=== PATIENT | female | born 1970 | race Caucasian/White ===

== ENCOUNTER → 2017-10-19 13:01 | Outpatient (CLI) | payer BC, SELFPAY ==
[2017-10-19 15:42] LABS: Absolute Lymphocyte Count 1.96 X10^3/ul (0.83-4.51); Absolute Neutrophil Count 3.8 X10^3/uL (2.0-7.7); Basophil# 0.05 X10^3/uL; Basophil% 0.8 % (0-1); Eosinophil# 0.18 X10^3/uL; Eosinophils% 2.7 % (0-5); Hematocrit 40.7 % (37-47); Lymphocyte # 1.96 X10^3/ul (4.0); Lymphocyte % 29.6 % (19-41); Mean Corp Hgb Conc 34.4 g/gl (32-36); Mean Corpuscular Hgb 29.3 pg (27.0-32.0); Mean Corpuscular Volume 85.1 fL (81-99); Mean Platelet Vol. 10.7 fl (6.2-12.0); Monocyte# 0.59 X10^3/uL; Monocyte% 8.9 % (0-10); Neutrophil # 3.82 X10^3/uL (2.7-7.7); Neutrophil % 57.7 % (47-70); Platelet Count 231 K/mm3 (150-450); RBC Distribution Width CV 12.6 % (11.6-14.6); RBC Distribution Width SD 38.9 fl (35.1-43.9); Red Blood Count 4.78 M/mm3 (4.2-5.4); White Blood Count 6.6 K/mm3 (4.4-11.0)
[2017-10-19 15:56] LABS: Anion Gap 7 (5-15); BUN 16 mg/dL (7-18); BUN/Creat Ratio 18.2 RATIO (10-20); Calcium,Total 8.6 mg/dL (8.5-10.1); Chloride 105 mmol/L (98-107); Creatinine, Serum 0.88 mg/dL (0.55-1.02); EST Glomerular Filtration Rate 72 mL/min (>60); Est Glom Filt Rate - Afr Amer 88 mL/min (>60); Glucose 97 mg/dL (74-106); Potassium 4.1 mmol/L (3.5-5.1); Sodium Level 141 mmol/L (136-145); Thyroid Stim Hormone (TSH) 1.06 uIU/mL (0.358-3.74)
[2017-10-19 16:05] LABS: POSITIVE COUNT NO; POSITIVE DIFFERENTIAL NO; POSITIVE MORPHOLOGY NO
[2017-10-26 12:06] LABS: Cotinine Screen Blood None Detected (.); Nicotine Blood None Detected (.)
== END ==
PROVIDERS: Visit Provider Family Medicine
DX: Z00.00 Encounter for general adult medical examination without abnormal findings (principal); R63.5 Abnormal weight gain
CPT/HCPCS: 36415; 80048; 80307; 84443; 85025; G0478

== ENCOUNTER → 2018-05-24 12:27 | Outpatient (CLI) | payer BC, SELFPAY ==
--- NOTE | 2018-05-24 12:31 | BI_ITS ---
MAMMOGRAPHY - BILATERAL SCREENING REASON FOR EXAM: Female, 48 years old. Routine annual screening examination. PERTINENT HISTORY: Non-contributory. TECHNIQUE: Digital bilateral breast ari (3D mammographic acquisition) in the CC and MLO projections. 2-D mediolateral oblique (MLO) and craniocaudad (CC) views of both breasts were obtained. CAD: Full Field Digital Mammography with Computer Added Detection was performed. COMPARISON: Comparison is made with prior examination dated October 21, 2016 and November 02, 2013. FINDINGS: Breast Composition: There are scattered areas of fibroglandular density. There are no dominant masses or suspicious calcifications. No other significant abnormalities are identified. There has been no significant change since the prior study. BI/SCREENING MAMM (CAD), BILAT IMPRESSION: Stable bilateral screening mammogram. Yearly follow-up mammogram recommended. (A) ASSESSMENT CATEGORY: BIRADS Category 1: Negative. A letter regarding these results will be sent to the patient by the facility within 30 days. Approximately 10% of breast cancers are not detected by mammography. A normal mammogram should not delay biopsy of a clinically suspicious abnormality. [id number] Electronically Signed: Leo Johnson MD at 13:14 EST , Service support ,
--- OUTSIDE RECORDS SUMMARY | 2018-07-26 16:16 | XMS RPT_ITS ---
:1970 Author Organization [facility] Care Team Providers Name Role Phone Marycarmen Mckee Attending Unavailable Marycarmen Mckee Referring Unavailable Marycarmen Mckee Attending Unavailable PROBLEMS PROBLEMS DATE TYPE CONDITION / CODE ATTENDING STATUS SOURCE 10/19/2017 Unknown R63.5 - Abnormal Marycarmen Mckee Active [facility] weight gain / Community R63.5(ICD-10) Hospital Repository 10/19/2017 Unknown Z00.00 - Marycarmen Mckee Active [facility] Encounter for [facility] medical Repository examination without abnormal findings / Z00.00(ICD-10) PROCEDURES PROCEDURES No Procedure Records FoundRESULTS RESULTS SCREENING MAMM (CAD), Observed: 05/24/2018 Status: F Source: ANA BILAT 12:31 PM [facility] REPOSITORY [facility] Imaging Services [address] [place] [address] SCREENING MAMM (CAD), BILAT MR#: [id number] Acct: [id number] Name: BEKAH VALENTINO Rep #: [id number] : 1970 F 48 From: Leo Johnson MD PCP: Status: REG CLI Study: SCREENING MAMM (CAD), BILAT Date of Exam: 05/24/18 Exam# [id number] Ordering Dr: Marycarmen Mckee MD MAMMOGRAPHY - BILATERAL SCREENING REASON FOR EXAM: Female, 48 years old. Routine annual screening examination. PERTINENT HISTORY: Non-contributory. TECHNIQUE: Digital bilateral breast ari (3D mammographic acquisition) in the CC and MLO projections. 2-D mediolateral oblique (MLO) and craniocaudad (CC) views of both breasts were obtained. CAD: Full Field Digital Mammography with Computer Added Detection was performed. COMPARISON: Comparison is made with prior examination dated October 21, 2016 and November 02, 2013. FINDINGS: Breast Composition: There are scattered areas of fibroglandular density. There are no dominant masses or suspicious calcifications. No other significant abnormalities are identified. There has been no significant change since the prior study. BI/SCREENING MAMM (CAD), BILAT IMPRESSION: Stable bilateral screening mammogram. Yearly follow-up mammogram recommended. (A) ASSESSMENT CATEGORY: BIRADS Category 1: Negative. A letter regarding these results will be sent to the patient by the facility within 30 days. Approximately 10% of breast cancers are not detected by mammography. A normal mammogram should not delay biopsy of a clinically suspicious abnormality. [id number] Electronically Signed: Leo Johnson MD at 13:14 EST , Service support , CC: Marycarmen Mckee MD Contract Agent: Signed BASIC METABOLIC Collected: 10/19/2017 Status: F Source: ANA PROFILE (BMP) 1:05 PM [facility] REPOSITORY TYPE CODE TESTS RESULT OUT OF RANGE REFERENCE UNITS LAB L501.0100 74-106 mg/dL Normal GLU 97 Result Comment: Please note revised GLUCOSE reference range effective 2017. LAB L501.1000 7-18 mg/dL Normal BUN 16 LAB L501.1100 0.55-1.02 mg/dL Normal CREAT,SERUM 0.88 Result Comment: The validity of the calculated GFR AND GFRAA in patients over 70 years has not been determined. Clinical correlation is essential. LAB L501.1110 >60 mL/min Normal EST GFR 72 Result Comment: Non- GFR Calc LAB L501.1115 >60 mL/min Normal EST GFR - AA 88 Result Comment: GFR Calc LAB L501.1300 10-20 RATIO Normal BUN/CRE 18.2 LAB L501.2200 8.5-10.1 mg/dL CA Normal 8.6 LAB L501.5300 136-145 mmol/L NA Normal 141 LAB L501.5600 3.5-5.1 mmol/L K Normal 4.1 LAB L501.5900 98-107 mmol/L CL Normal 105 LAB L501.6100 21.0-32.0 mmol/L Normal CO2 29.0 LAB L501.6200 5-15 Normal GAP 7 Performed By: #### L500.2500, L501.9520 #### [facility] [address] [place], [place], [address] THYROID STIM HORMONE Collected: 10/19/2017 Status: F Source: [place] (TSH) 1:05 PM [facility] REPOSITORY TYPE CODE TESTS RESULT OUT OF RANGE REFERENCE UNITS LAB L501.9520 0.358-3.74 uIU/mL Normal TSH 1.06 Performed By: #### L500.2500, L501.9520 #### [facility] [address] [place], [address] CBC W/DIFF, AUTOMATED Collected: 10/19/2017 Status: F Source: ANA 1:05 PM [facility] REPOSITORY TYPE CODE TESTS RESULT OUT OF RANGE REFERENCE UNITS LAB L100.1000 4.4-11.0 K/mm3 Normal WBC 6.6 LAB L100.1200 4.2-5.4 M/mm3 Normal RBC 4.78 LAB L100.1300 12.0-15.0 g/dl Normal HGB 14.0 LAB L100.1400 37-47 % Normal HCT 40.7 LAB L100.1500 81-99 fL Normal MCV 85.1 LAB L100.1600 27.0-32.0 pg Normal MCH 29.3 LAB L100.1700 32-36 g/gl Normal MCHC 34.4 LAB L100.1810 11.6-14.6 % Normal RDW CV 12.6 LAB L100.1820 35.1-43.9 fl Normal RDW SD 38.9 LAB L100.1900 150-450 K/mm3 Normal PLT 231 LAB L100.2000 6.2-12.0 fl Normal MPV 10.7 LAB L100.2100 47-70 % Normal NEUT% 57.7 LAB L100.2200 19-41 % Normal LY% 29.6 LAB L100.2300 0-10 % Normal MONO% 8.9 LAB L100.2400 0-5 % Normal EO% 2.7 LAB L100.2500 0-1 % Normal BASO% 0.8 LAB L100.2550 0.0-0.9 % Normal IM GRAN % 0.300 Result Comment: IG% - Immature Granulocytes (promyelocytes, myelocytes and metamyelocytes) > 1% indicates that a LEFT SHIFT is Present. LAB L100.2620 2.0-7.7 X10 3/uL Normal Absolute Neut 3.8 LAB L100.2720 0.83-4.51 X10 3/ul Normal Absolute Lymph 1.96 Performed By: #### L100.0100 #### [facility] [address] [place], [address] NICOTINE SCREEN BLOOD Collected: 10/19/2017 Status: F Source: [place] 1:05 PM [facility] REPOSITORY TYPE CODE TESTS RESULT OUT OF RANGE REFERENCE UNITS LAB L3600.3410 . ng/mL Normal NICOTINE BLD None Detected Result Comment: Nicotine levels greater than 2.0 are consistent with the use of tobacco or tobacco cessation products. LAB L3600.3425 . ng/mL Normal COTININE BLD None Detected Result Comment: Cotinine levels greater than 20.0 are consistent with the use of tobacco or tobacco cessation products. Performed at: [facility] [id number] Enrollment Management Director: Jasson Lopez MD, Phone: [phone] Performed By: #### L3600.3400 #### [facility] (refer to report for specific site) refer to report for address and phone number ALLERGIES ALLERGIES No Allergies Records FoundENCOUNTERS ENCOUNTERS ADMIT/DISCHARGE ACCOUNT ADMITTING ENCOUNTER LOCATION SOURCE NUMBER CLASS 05/24/2018 [id number] Ambulatory [facility] [address] [facility] ing:OPBI Repository 10/19/2017 [id number] [facility] ing:BF[facility]AB Repository PAYERS PAYERS ENCOUNTER GUARANTOR PAYER SUBSCRIBER SOURCE 05/24/2018 BEKAH Campos Primary BEKAH Young [id number] Insurance:[facility] [address]: [place]: [id number] [id number] Repository [address]Vsr: ([phone]) Date:[id number] [phone] () [id number], [place] [address]ZV: 05/24/2018 Secondary NOT GIVENUNK [facility] Insurance:SELF PAY [facility] Number: Effective Repository Date:2018-04-21 10/19/2017 Bekah Campos Primary Bekah Young [id number] [address] Number: B: [id number], [place] [id number] Repository [address]Fjp: (330) Date:[id number] [phone] () [id number], [place] [address]XC: 10/19/2017 Secondary NOT GIVENUNK [facility] Insurance:SELF PAY [facility] Number: Effective Repository Date:2017-10-19
== END ==
PROVIDERS: Referring Provider Family Medicine; Visit Provider Family Medicine
DX: Z12.31 Encounter for screening mammogram for malignant neoplasm of breast (principal)
CPT/HCPCS: 77063; 77067

== ENCOUNTER → 2018-10-20 | Outpatient (CLI) | payer BC, SELFPAY ==
[2018-10-20 12:14] LABS: Absolute Lymphocyte Count 1.56 X10^3/ul (0.83-4.51); Absolute Neutrophil Count 4.2 X10^3/uL (2.0-7.7); Basophil# 0.04 X10^3/uL; Basophil% 0.6 % (0-1); Eosinophil# 0.14 X10^3/uL; Eosinophils% 2.1 % (0-5); Hemoglobin 14.1 g/dl (12.0-15.0); Lymphocyte # 1.56 X10^3/ul (4.0); Lymphocyte % 23.9 % (19-41); Mean Corp Hgb Conc 32.8 g/gl (32-36); Mean Corpuscular Hgb 28.3 pg (27.0-32.0); Mean Corpuscular Volume 86.2 fL (81-99); Mean Platelet Vol. 10.7 fl (6.2-12.0); Monocyte# 0.56 X10^3/uL; Monocyte% 8.6 % (0-10); Neutrophil # 4.22 X10^3/uL (2.7-7.7); Neutrophil % 64.6 % (47-70); Platelet Count 239 K/mm3 (150-450); RBC Distribution Width CV 13.7 % (11.6-14.6); RBC Distribution Width SD 42.9 fl (35.1-43.9); Red Blood Count 4.99 M/mm3 (4.2-5.4); White Blood Count 6.5 K/mm3 (4.4-11.0)
[2018-10-20 12:22] LABS: Anion Gap 9 (5-15); BUN 15 mg/dL (7-18); BUN/Creat Ratio 16.9 RATIO (10-20); Calcium,Total 8.9 mg/dL (8.5-10.1); Chloride 107 mmol/L (98-107); Creatinine, Serum 0.88 mg/dL (0.55-1.02); EST Glomerular Filtration Rate 72 mL/min (>60); Est Glom Filt Rate - Afr Amer 87 mL/min (>60); Glucose 101 mg/dL (74-106); Potassium 4.1 mmol/L (3.5-5.1); Sodium Level 141 mmol/L (136-145)
[2018-10-20 12:31] LABS: POSITIVE COUNT NO; POSITIVE DIFFERENTIAL NO; POSITIVE MORPHOLOGY NO
[2018-10-24 11:27] LABS: Nicotine Blood None Detected (.)
[2018-10-24 11:28] LABS: Cotinine Screen Blood None Detected (.)
[2018-10-26 09:04] LABS: HPV HC, High Risk Negative (Negative)
== END | disposition home or self-care (01) ==
LOC: BFHLAB 08:24
PROVIDERS: Family Provider Family Medicine; PCP Family Medicine; Visit Provider Family Medicine
DX: Z00.00 Encounter for general adult medical examination without abnormal findings (principal); I10 Essential (primary) hypertension; Z12.4 Encounter for screening for malignant neoplasm of cervix
CPT/HCPCS: 36415; 80048; 80323; 85025; 87624; 88175; G0145

== ENCOUNTER 2018-11-09 07:43 | Day surgery (SDC) | payer BC, SELFPAY ==
[2018-11-09 08:20] VITALS: BP 139/85; PULSE 60; RESP 16; TEMP 37.4; O2SAT 100; BMI 27.6
--- NOTE | 2018-11-09 08:34 | H&P.OPEN ---
History of Present Illness Date of Admission: 11/09/18 The patient is a 48 year old F presents for screening colonoscopy. Patient is never had a colonoscopy. Patient's paternal grandmother was diagnosed with colon cancer in her 70s. Patient's dad was also diagnosed with esophageal cancer. Patient states she has bowel movements daily denies any blood or abdominal pain or nausea or vomiting. Patient's reflux is controlled with Nexium. Patient has had previous EGD about 3 years ago. Past Medical/Surgical History - Planned Operation Planned Operative Procedure/s: COLONOSCOPY Date of Operative Procedure: 11/09/18 Permit Signed: Yes S.O.S: No Is This Patient Having a Total Joint: No - Previous Hospitalizations/Surgeries HX Hospitalizations: No HX of Surgeries: ABLATION. TUBAL Any Problems With Anesthesia: No You/Your Family Experience Fever (Hyperthermia) With Anes: No Cholinesterase deficiency: No - Cardiovascular Hx Chest Pain within Last 2 months: No Hx of Irregular Heartbeat and/or Afib: Yes - HEART MURMUR Hx Heart Attack: No Hx Congestive Heart Failure: No Hx Rheumatic Fever: No Hx Hypertension: Yes - ON MED, CONTROLLED Hx Internal Defibrillator: No Hx Pacemaker: No Hx Cardiac Catheterization: No Hx Cardiac Surgery/Stents/Etc.: No Hx Stress Test: Yes - [facility], ~9-10 YRS AGO HX Edema: No Hx Pain in Legs when Walking/Leg Cramps: No - Respiratory Chronic Cough: No HX of Shortness of Breath: No Hoarseness: No Hx Chronic Obstructive Pulmonary Disease (COPD): No Hx Asthma: No Hx Emphysema: No Hx Sleep Apnea: No Hx Oxygen Use at Home: No Hx Respiratory Tract Infection/Cold (presently): No Do You Snore Loudly (louder than talking or can be heard): Yes Do You Often Feel Tired/ Fatigued/ Sleepy Dring Daytime?: No Has Anyone Observed You Stop Breathing During Sleep?: Yes Result (for STOP score): Positive Hx Smoking: No Smoking Status: Never smoker - Gastrointestinal Hx Gastroesophageal Reflux: Yes Controlled With Meds: Yes Hx Gastrointestinal Disorders: No Hx Gastrointestinal Bleed: No Hx Ulcer: No Hx Hiatal Hernia: No Difficulty Chewing/Swallowing: No Recent Onset of Swallowing Problems: No Special diet followed at home: No Hx Unplanned Weight Loss of 20#: No HX Unplanned Weight Gain of 20#: No - Neurological Hx Seizures: No HX Syncope/Blackout Spells/Unconsciousness: No Hx CVA/Stroke: No Hx Transient Ischemic Attacks (TIA): No Hx Multiple Sclerosis: No Hx Parkinson's Disease: No Hx Head/Neck Injury: No Hx Headaches: Yes Hx Back Injury/Pain: Yes Recent Onset of Speech Difficulty: No Restless Legs: No Does patient have nerve stimulator: No - Blood Disorder Hx Leukemia: No Bleeding Tendencies: No Hx Deep Vein Thrombosis: No Hx High Cholesterol: No Blood Transmitted Disease: No Hx Hepatitis: No Hx Cirrhosis: No Hx Anemia: Yes - HX OF Hx Blood Disorders: No - Reproduction : No Is Patient Lactating: No Hx Hysterectomy: No Hx Tubal Ligation: Yes Are You Post Menopause: No - Genitourinary Hx Renal Disease: No - Musculoskeletal Hx Arthritis: No Hx Rheumatoid Arthritis: No Hx Gout: No Recent Onset of an Orthopedic Problem: No - Endocrine Hx Diabetes: No Thyroid Disease: No Hx Steroid Therapy: No - Psycho/Social Hx Substance Use: No Hx Alcohol Use: No Hx Anxiety: No Hx Depression: No Mental Illness: No Hx Dementia: No - Miscellaneous Hx Cancer: No Recent Exposure to Contagious Disease: No Active MRSA: No Hx of C-Diff: No Any Loose Teeth: No Allergies No Known Allergies Allergy (Verified 11/09/18 08:18) - Discharge Is Pt Admitted From a Residential, or a Custodial: No Who Could Help: MOTHER After D/C, Where Do you Plan to Go: Return Home - Physical Exam General: Alert, Oriented x3, Cooperative, No apparent distress HEENT: Atraumatic Lungs: Normal air movement Cardiovascular: Regular rate Abdomen: Soft, Non Tender, Non-Distended Extremities: No clubbing, No cyanosis, No edema Neurological: Cranial nerves II-XII grossly intact Psych/Mental Status: Normal Affect Vital Signs Temp Pulse Resp BP Pulse Ox 99.3 F H 60 16 139/85 H 100 11/09/18 08:20 11/09/18 08:20 11/09/18 08:20 11/09/18 08:20 11/09/18 08:20 Oxygen Delivery Method Room Air Weight: 155 lb 10.342 oz Body Mass Index (BMI) 27.6 Assessment/Plan 48-year-old female for screening for colon cancer Surgery Risks - Colonoscopy I discussed with the patient the risks of the procedure: Yes Risks Include but are not Limited To: Risks include but are not limited to: Bleeding, perforation requiring further surgery, inability to complete colonoscopy requiring barium enema. Patient no further questions this time.
--- NOTE | 2018-11-09 09:05 | OP.ENDO_ITS ---
11/09/2018 Marycarmen Mckee [place] [address] [address] Re : Colonoscopy procedure for Tristan Schneider Dear Dr. Mckee This procedure was performed on Friday, November 09, 2018. My impressions and recommendations are as follows: Impressions : - Hemorrhoids found on perianal exam. - Internal hemorrhoids. - The entire examined colon is normal. - No specimens collected. Recommendations : - Discharge patient to home. - Continue present medications. - Repeat colonoscopy in 10 years for screening purposes. My findings are described in the full procedure note, which is enclosed. If I can be of further assistance, please feel free to contact me at Doctor phone number(s): , Work: . Sincerely, MD Sophy Urena MD 11/09/2018 9:05:27 AM This report has been signed electronically.
[2018-11-09 09:10] VITALS: BP 111/79; BP 139/85; PULSE 69; RESP 16; TEMP 36.7; O2SAT 96
[2018-11-09 09:15] VITALS: BP 112/77; BP 139/85; PULSE 64; RESP 16; O2SAT 96
[2018-11-09 09:20] VITALS: BP 109/93; BP 139/85; PULSE 69; RESP 16; O2SAT 100
[2018-11-09 09:27] VITALS: BP 121/77; BP 139/85; PULSE 60; RESP 16; O2SAT 100
[2018-11-09 09:34] VITALS: BP 139/85
== END 2018-11-09 09:50 | disposition home or self-care (01) ==
LOC: EN 07:43 → AC 07:45
PROVIDERS: Family Provider Family Medicine; PCP Family Medicine; Referring Provider Family Medicine; Visit Provider Surgery
PROC: 0DJD8ZZ Inspection of Lower Intestinal Tract, Via Natural or Artificial Opening Endoscopic (ICD-10-PCS; CPT 45378; principal; 2018-11-09 08:40)
DX: Z12.11 Encounter for screening for malignant neoplasm of colon (principal); K64.0 First degree hemorrhoids; Z80.0 Family history of malignant neoplasm of digestive organs; K21.9 Gastro-esophageal reflux disease without esophagitis; R01.1 Cardiac murmur, unspecified; I10 Essential (primary) hypertension; Z86.2 Personal history of diseases of the blood and blood-forming organs and certain disorders involving the immune mechanism; Z79.899 Other long term (current) drug therapy
CPT/HCPCS: 45378; J7120; J2405

== ENCOUNTER → 2019-10-27 10:28 | Outpatient (CLI) | payer BC, SELFPAY ==
[2019-10-27 12:16] LABS: Absolute Lymphocyte Count 1.68 X10^3/uL (0.83-4.51); Absolute Neutrophil Count 4.3 X10^3/uL (2.0-7.7); Basophil# 0.08 X10^3/uL; Basophil% 1.2 % (0-1); Eosinophil# 0.09 X10^3/uL; Eosinophils% 1.3 % (0-5); Hematocrit 41.4 % (37-47); Hemoglobin 13.6 g/dL (12.0-15.0); Lymphocyte # 1.68 X10^3/ul (4.0); Lymphocyte % 24.9 % (19-41); Mean Corp Hgb Conc 32.9 g/dL (32-36); Mean Corpuscular Volume 88.3 fL (81-99); Mean Platelet Vol. 10.8 fl (6.2-12.0); Monocyte# 0.61 X10^3/uL; NRBC Flagged by Analyzer 0 % (0-5); Neutrophil # 4.27 X10^3/uL (2.7-7.7); Neutrophil % 63.3 % (47-70); Platelet Count 251 K/mm3 (150-450); RBC Distribution Width CV 13.1 % (11.6-14.6); RBC Distribution Width SD 41.8 fl (35.1-43.9); Red Blood Count 4.69 M/mm3 (4.2-5.4); White Blood Count 6.8 K/mm3 (4.4-11.0)
[2019-10-27 12:23] LABS: Anion Gap 4 (5-15); BUN 10 mg/dL (7-18); BUN/Creat Ratio 11.4 RATIO (10-20); Calcium,Total 9.4 mg/dL (8.5-10.1); Chloride 108 mmol/L (98-107); Creatinine, Serum 0.88 mg/dL (0.55-1.02); EST Glomerular Filtration Rate 72 mL/min (>60); Est Glom Filt Rate - Afr Amer 87 mL/min (>60); Glucose 96 mg/dL (74-106); Potassium 5.1 mmol/L (3.5-5.1); Sodium Level 140 mmol/L (136-145)
[2019-11-03 13:58] LABS: Cotinine Screen Blood <1.0 ng/mL (.); Nicotine Blood <1.0 ng/mL (.)
== END ==
PROVIDERS: PCP Family Medicine; Visit Provider Family Medicine
DX: Z00.00 Encounter for general adult medical examination without abnormal findings (principal)
CPT/HCPCS: 36415; 80048; 80323; 85025

== ENCOUNTER → 2019-11-06 15:52 | Outpatient (CLI) | payer BC, SELFPAY ==
--- NOTE | 2019-11-06 15:55 | BI_ITS ---
MAMMOGRAPHY - BILATERAL SCREENING REASON FOR EXAM: Female, 49 years old. Routine annual screening examination. PERTINENT HISTORY: Non-contributory. TECHNIQUE: Digital bilateral breast kaci (3D mammographic acquisition) in the CC and MLO projections. 2-D mediolateral oblique (MLO) and craniocaudad (CC) views of both breasts were obtained. CAD: Full Field Digital Mammography with Computer Added Detection was performed. COMPARISON: Comparison is made with prior examination dated November 21, 2018 and November 02, 2013. FINDINGS: Breast Composition: There are scattered areas of fibroglandular density. There are no dominant masses or suspicious calcifications. No other significant abnormalities are identified. There has been no significant change since the prior study. BI/SCREEN MAMM (CAD) W/KACI BILAT IMPRESSION: Stable bilateral screening mammogram. Yearly follow-up mammogram recommended. (A) ASSESSMENT CATEGORY: BIRADS Category 1: Negative. A letter regarding these results will be sent to the patient by the facility within 30 days. Approximately 10% of breast cancers are not detected by mammography. A normal mammogram should not delay biopsy of a clinically suspicious abnormality. [id number] Electronically Signed: Leo Johnson, at 8:28 EDT , Service support ,
== END ==
PROVIDERS: PCP Family Medicine; Referring Provider Family Medicine; Visit Provider Family Medicine
DX: Z12.31 Encounter for screening mammogram for malignant neoplasm of breast (principal)
CPT/HCPCS: 77063; 77067

== ENCOUNTER → 2020-11-22 14:47 | Outpatient (CLI) | payer BC, SELFPAY ==
--- NOTE | 2020-11-22 15:20 | BI_ITS ---
MAMMOGRAPHY - BILATERAL SCREENING REASON FOR EXAM: Female, 50 years old. Routine annual screening examination. PERTINENT HISTORY: Non-contributory. TECHNIQUE: Digital bilateral breast kaci (3D mammographic acquisition) in the CC and MLO projections. 2-D mediolateral oblique (MLO) and craniocaudad (CC) views of both breasts were obtained. CAD: Full Field Digital Mammography with Computer Added Detection was performed. COMPARISON: Comparison is made with prior study dated 11/06/2019 and 05/24/2018. FINDINGS: Breast Composition: There are scattered areas of fibroglandular density. There are no dominant masses or suspicious calcifications. No other significant abnormalities are identified. There has been no significant change since the prior study. BI/SCRN MAMM (CAD)W/KACI BILAT IMPRESSION: Stable bilateral screening mammogram. Yearly follow-up mammogram recommended. (A) ASSESSMENT CATEGORY: BIRADS Category 1: Negative. A letter regarding these results will be sent to the patient by the facility within 30 days. Approximately 10% of breast cancers are not detected by mammography. A normal mammogram should not delay biopsy of a clinically suspicious abnormality. [id number] Electronically Signed: Leo Johnson MD at 8:29 EDT , Service support ,
== END ==
PROVIDERS: PCP Family Medicine; Referring Provider Family Medicine; Visit Provider Family Medicine
DX: Z12.31 Encounter for screening mammogram for malignant neoplasm of breast (principal)
CPT/HCPCS: 77063; 77067

== ENCOUNTER 2021-03-15 15:38 | Emergency (ER) | payer BC, SELFPAY ==
[2021-03-15] VITALS (7 sets, daily range): BP systolic 111–135; BP diastolic 65–87; PULSE 77–87; RESP 17–24; TEMP 36.8; O2SAT 89–96; BMI 27.4
--- NOTE | 2021-03-15 15:55 | RAD_ITS ---
STUDY: X-RAY CHEST REASON FOR EXAM: Female, 51 years old. covid TECHNIQUE: AP COMPARISON: None. FINDINGS: EKG leads project over the chest. Multifocal infiltrates with features commonly reported with COVID pneumonia. There is no demonstrated pleural abnormality. Normal size heart. Normal mediastinum and bert. Normal visualized pulmonary arteries. Normal visualized aortic arch and descending thoracic aorta. Normal visualized thoracic spine. Normal visualized ribs, clavicles, and shoulders. There is no demonstrated abnormality of the visualized soft tissue structures of the upper abdomen. RAD/Chest 1 View (Portable) IMPRESSION: Multifocal infiltrates with features commonly reported with COVID pneumonia. Electronically Signed: Terell Briceño MD ([place]) at 16:55 EST , Service support ,
--- NOTE | 2021-03-15 15:56 | EKG12_ITS ---
Test Reason : Blood Pressure : / mmHG Vent. Rate : 083 BPM Atrial Rate : 083 BPM P-R Int : 120 ms QRS Dur : 086 ms QT Int : 366 ms P-R-T Axes : 007 -14 001 degrees QTc Int : 430 ms Normal sinus rhythm Voltage criteria for left ventricular hypertrophy Abnormal ECG Confirmed by HAYDEN THOMASON, ARACELI ([id number]), photographic editor SUSHANT ECHOLS ([id number]) on 03/17/2021 10:58:49 AM Referred By: ENDY Confirmed By:ARACELI BLAKE MD
--- NOTE | 2021-03-15 15:57 | EDS_ITS ---
HPI History of Present Illness Chief Complaint: Shortness of Breath Informant: patient Onset/Context/Timing Onset: Days Context: gradual Timing: Intermittent Quality: Positive for Dyspnea on exertion Current Severity: Mild Maximum Severity: Mild Associated Symptoms cough and fever Chest Pain: Positive for None Narrative Narrative: 51-year-old female past medical history of hypertension. States that she has had Covid symptoms since last Wednesday. She had a recent home Covid test that was positive on Wednesday. Today she went to urgent care they have a pending Covid test done there. Her pulse ox was only 88 so they sent her to the emergency department. She denies chest pain or hemoptysis. She is also had fever and body aches. No vomiting. Mild diarrhea. PE Risk Factors: Negative for Cancer, OCP + Smoking + > 35, Prior DVT or PE, Recent immobilization, Recent surgery and Recent travel Prior similar symptoms: No Recent Illness/Hospitalization: No PFSH [facility] Medical History (Updated 03/15/21 @ 18:[address] Gregorio Ramirez MD) GERD (gastroesophageal reflux disease) HTN (hypertension) Home Medications atenolol 25 mg PO DAILY 11/07/18 [History Last Taken 11/09/18] esomeprazole magnesium 40 mg PO DAILY 11/07/18 [History Last Taken 11/09/18] dexamethasone [Decadron] 6 mg PO DAILY 10 Days #10 tab 03/15/21 [Rx Last Taken Unknown] Allergy/AdvReac Type Severity Reaction Status Date / Time Penicillins Allergy PT UNSURE Verified 03/15/21 15:38 OF REACTION Social History Smoking Status: Never smoker ROS ROS ED ROS Narrative Fever, chills, body aches, cough, shortness of breath and diarrhea. Review of Systems ROS Unobtainable: Denies due to encephalopathy Constitutional Constitutional ED: Reports chills and fever(s) Eyes Eyes: Denies change in vision ENT ENT ED: Denies ear pain or sore throat Cardiovascular Cardiovascular: Denies chest pain Respiratory/Chest Respiratory/Chest: Reports cough and dyspnea Gastrointestinal Gastrointestinal: Reports diarrhea; Denies abdominal pain, nausea or vomiting Genitourinary Genitourinary ED: Denies dysuria Musculoskeletal Musculoskeletal: Reports myalgias Integumentary Denies rash Neurologic Neurologic: Denies headache(s) Psychiatric Psychiatric: Denies depression Endocrine Endocrinology: Denies polyuria Hematologic/Lymphatic Hematologic/Lymphatic: Denies easy bruising Allergic/Immunologic Allergic/Immunologic ED: Denies urticaria EXAM Physical Exam Narrative Exam Narrative: Middle-aged female no acute distress vital signs stable afebrile currently her pulse ox is 91% on room air lying in bed. HEENT exam unremarkable. Moist mucous memories. Neck nontender no JVD. Lungs clear to auscultation bilaterally. Heart regular rhythm no murmur. Abdomen soft nontender. Moving all 4 extremities. Calves are nontender without edema or cords. Neurologically she is awake and alert with no focal motor deficits. Const Vital Signs: 03/15/21 15:39 03/15/21 16:28 03/15/21 17:24 Temperature 98.2 F 98.2 F Temperature Source Temporal Temporal Pulse Rate 86 82 77 Respiratory Rate 20 H 22 H 17 Blood Pressure 126/87 H 135/87 H 115/70 Blood Pressure Mean 100 103 85 Pulse Ox 91 96 94 Oxygen Delivery Method Room Air Room Air Nasal Cannula Oxygen Flow Rate (L/min) 2 Positive well nourished and well developed; Negative for obese, cachectic, contractures or unkempt General Appearance ED: well developed and NAD; Negative for unkempt, cachectic, contractures or pallor Nutritional Appearance: Negative for cachectic or obese HEENT Reports moist mucous membranes atraumatic; Negative for trauma or tenderness Eyes PERRL and EOMs intact bilaterally Neck no lymphadenopathy, supple, no meningeal signs and no JVD General: Negative for tenderness Resp normal respiratory effort and clear to auscultation bilaterally Auscultation: Negative for rales, rhonchi or wheezes Cardio regular rate, regular rhythm, S1 normal heart sound, S2 normal heart sound and no murmurs GI non-tender, non-distended and no masses Auscultation: normoactive bowel sounds Palpation: soft; Negative for tender, guarding or rebound tenderness present Back/Spine no CVA tenderness and normal to inspection General Back: Negative for CVA tenderness or tenderness Extremity normal to inspection General Extremety ED: Negative for edema or tenderness General Extremity: Negative for edema Neuro oriented x3 and CN's II-XII intact bilaterally Sensorium / Orientation: alert, oriented to person, oriented to place and oriented to time; Negative for orientation impaired, confused, lethargic or stuporous Motor Exam: strength 5/5 throughout Psych mental status grossly normal Appearance: Negative for unkempt Attitude: No agitated Mood & Affect: Negative for depressed or tearful Thought Process: normal thought process Skin no wounds and skin turgor normal General Skin Exam: Negative for jaundice or pallor Lesions: no lesions Rashes: no rashes MDM MDM MDM Narrative Medical decision making narrative: 51-year-old female history of hypertension Covid symptoms for a week reportedly pulse ox was 88 at a urgent care center emergency department. Repeat exam patient is doing well. She is comfortable being discharged home. I will have the administrator social welfare set her up for home oxygen. She will be started on daily Decadron for the next 10 days. Return if feeling worse. I spoke both to the patient and her daughter. Lab Data Attestation: I reviewed the patient's lab results. Lab results narrative: CBC unremarkable white count of 5. Hemoglobin 13.3. Electrolytes show sodium 132. Gap is 7 normal BUN and creatinine. Glucose of 110. Labs: Laboratory Results - last 24 hr 03/15/21 03/15/21 16:20 16:20 WBC 5.5 RBC 4.78 Hgb 13.3 Hct 38.6 MCV 80.8 L MCH 27.8 MCHC 34.5 RDW Std Deviation 37.6 RDW Coeff of Izzy 12.7 Plt Count 203 MPV 9.4 Immature Gran % (Auto) 0.900 Neut % (Auto) 78.2 H Lymph % (Auto) 15.4 L Hernando % (Auto) 5.3 Eos % (Auto) 0.0 Baso % (Auto) 0.2 Absolute Neuts (auto) 4.3 Absolute Lymphs (auto) 0.84 Nucleated RBC % 0 Sodium 132 L Potassium 3.8 Chloride 98 Carbon Dioxide 27.0 Anion Gap 7 BUN 10 Creatinine 0.87 Estim Creat Clear Calc 59.15 Est GFR (MDRD) Af Amer 87 Est GFR (MDRD) Non-Af 72 BUN/Creatinine Ratio 11.5 Glucose 110 H Calcium 8.7 Radiography Chest X-Ray - ED: 1 View, Read by ED Physician, Heart, Mediastinum, Bony Structures, No Acute Disease, Right Infiltrate and Left Infiltrate Diagnostic Testing: Clinical Impression(s) from Imaging Studies Chest X-Ray 03/15/21 15:55 IMPRESSION: Multifocal infiltrates with features commonly reported with COVID pneumonia. Electronically Signed: Terell Briceño MD (Brooks) at 16:55 EST , Service support , Chest x-ray single portable view interpreted myself and radiologist shows bilateral infiltrates consistent with Covid pneumonitis. Rhythm Strip Rhythm Strip: Sinus Rhythm Rate: 83 Ectopy: None EKG Initial EKG: Attestation: I personally reviewed and interpreted this EKG as follows: Interpretation: Sinus Rhythm and No Acute Injury Pattern Comments: Normal sinus rhythm rate of 83 no acute signs of FL or ischemia. No old EKG available. Prior EKG tracings: not available for review Discharge Plan Triage Chief Complaint: Shortness of Breath ED Provider: Gregorio Ramirez Dx/Rx/DC Orders Clinical Impression: COVID-19, Hypoxia Instructions: Human Coronaviruses Prescriptions: New dexamethasone [Decadron] 6 mg tablet 6 mg PO DAILY 10 Days Qty: 10 RF: 0 No Action atenolol 25 MG tablet 25 mg PO DAILY RF: 0 esomeprazole magnesium 40 MG capsule 40 mg PO DAILY RF: 0 Primary Care Provider: Marycarmen Mckee Referrals: Marycarmen Mckee MD [Primary Care Provider] - As Needed Activity Restrictions/Additional Instructions: Plenty of fluids and rest. Tylenol for fever as needed. Daily Decadron 6 mg a day starting tomorrow. Home O2 to help with your breathing. Return emergency room if feeling a lot worse or a lot more short of breath. Disposition Disposition: Home, Self Care
[2021-03-15 16:26] LABS: Absolute Lymphocyte Count 0.84 X10^3/uL (0.83-4.51); Absolute Neutrophil Count 4.3 X10^3/uL (2.0-7.7); Basophil# 0.01 X10^3/uL; Basophil% 0.2 % (0-1); Hematocrit 38.6 % (37-47); Hemoglobin 13.3 g/dL (12.0-15.0); Lymphocyte # 0.84 X10^3/ul (0.83-4.51); Lymphocyte % 15.4 % (19-41); Mean Corp Hgb Conc 34.5 g/dL (32-36); Mean Corpuscular Hgb 27.8 pg (27.0-32.0); Mean Corpuscular Volume 80.8 fL (81-99); Mean Platelet Vol. 9.4 fl (6.2-12.0); Monocyte# 0.29 X10^3/uL; Monocyte% 5.3 % (0-10); NRBC Flagged by Analyzer 0 % (0-5); Neutrophil # 4.26 X10^3/uL (2.7-7.7); Neutrophil % 78.2 % (47-70); Platelet Count 203 K/mm3 (150-450); RBC Distribution Width CV 12.7 % (11.6-14.6); RBC Distribution Width SD 37.6 fl (35.1-43.9); Red Blood Count 4.78 M/mm3 (4.2-5.4); White Blood Count 5.5 K/mm3 (4.4-11.0)
[2021-03-15] MEDS: dexAMETHasone 10 MG/ML Vial IV (16:28)
[2021-03-15 16:39] LABS: Anion Gap 7 (5-15); BUN 10 mg/dL (7-18); BUN/Creat Ratio 11.5 RATIO (10-20); Calcium,Total 8.7 mg/dL (8.5-10.1); Chloride 98 mmol/L (98-107); Creatinine, Serum 0.87 mg/dL (0.55-1.02); EST Glomerular Filtration Rate 72 mL/min (>60); Est Glom Filt Rate - Afr Amer 87 mL/min (>60); Estimated Creatinine Clearance 59.15 ml/min; Glucose 110 mg/dL (74-106); Potassium 3.8 mmol/L (3.5-5.1); Sodium Level 132 mmol/L (136-145)
--- NOTE | 2021-03-15 17:26 | ED.RN ---
pt became very dizzy and felt like heart was racing ( highest HR was 77 ) and that she was going to pass out. wheelchair to get back to room.
--- NOTE | 2021-03-15 19:08 | CM.ED ---
Addendum entered by Stefani Suresh 03/15/21 19:49: DIEGO spoke to Leo at [facility] Medical prescription for patient was reviewed to 2 L. DIEGO sent Updated [employer] prescription to the [facility]. DIEGO sent email to [email or web address]. Leo from [facility] said that he will call patient in 30 minutes. DIEGO updated patient's RN. [facility] [place] up with patient. Stefani CHEATHAM Original Note: Diego Note Referral Source: MD Patient requires home oxygen at discharge. DIEGO completed paperwork for oxygen. DIEGO called [facility] collections director and spoke to Celine. DIEGO faxed paperwork to [facility]. Original [employer] Prescription placed in chart. Email sent to [email or web address]. Plan: Home oxygen Stefani CHEATHAM
--- NOTE | 2021-03-18 13:14 | CASEMGMT ---
[facility] COVID Home O2 Follow-up: This RN CM Attempted to contact pt via phone for follow-up. Identifying voicemail received and message left requesting a return call. Chanel Acuña RN CM
--- NOTE | 2021-03-18 15:57 | CASEMGMT ---
[facility] COVID Home O2 Follow-up: This RN CHIARA received a return call from pt. Pt states she is feeling much better today compared to the previous days including less SOB. Pt reports her PO to be 95% on 2l/min O2. Pt states she is eating the best that she can considering she cannot taste very much. Encouraged pt to complete deep breathing exercises and pt reports to be getting up to walk periodically. She has not scheduled a follow-up appointment with Dr. Mckee. Encouraged pt to contact her PCP's office regarding follow-up and for future O2 weaning. Pt states she did receive and is taking her decadron. Pt reports to be isolating from others. Pt denies any questions regarding her dx or dc instructions or any concerns. Chanel Acuña RN CM
--- NOTE | 2021-03-21 10:20 | CASEMGMT ---
[facility] COVID Home O2 Follow-up: This RN CM contacted pt via phone for follow-up. Pt states she is feeling a lot better and reports her PO to be 91% and greater with ambulation off O2. Pt states she continues to wear her O2 at 2l/min most of the time but does take it off to ambulate on occassion. Pt states she is moving around a lot more and continues to eat and drink. Pt states she did contact her PCP and has an appointment on 04/03. Pt denies any further questions or concerns at this time. Chanel Acuña RN CM
== END 2021-03-15 20:14 | disposition home or self-care (01) ==
PROVIDERS: Emergency Provider Emergency Medicine; PCP Family Medicine
DX: U07.1 COVID-19 (principal); J12.82 Pneumonia due to coronavirus disease 2019; R09.02 Hypoxemia; I10 Essential (primary) hypertension; K21.9 Gastro-esophageal reflux disease without esophagitis; Z79.899 Other long term (current) drug therapy
CPT/HCPCS: 71045; 80048; 85025; 93005; 96374; 99285; A4216

== ENCOUNTER → 2021-12-02 | Outpatient (CLI) | payer BC, SELFPAY ==
--- NOTE | 2021-12-02 13:15 | BI_ITS ---
MAMMOGRAPHY - BILATERAL SCREENING 3-D TOMOSYNTHESIS REASON FOR EXAM: Female, 51 years old. Annual screening mammogram. PERTINENT HISTORY: No significant family history. TECHNIQUE: 2-D mammograms and 3-D Tomosynthesis of the breast (s) were performed. CAD was performed. COMPARISON: 11/22/2020, 11/06/2019. FINDINGS: The breast composition is almost entirely fat. No dense spiculated masses or suspicious microcalcifications are identified. No architectural distortion is identified. There is no skin thickening or retraction. BI/SCRN MAMM (CAD)W/KACI BILAT IMPRESSION: No interval change and no mammographic signs of malignancy. Routine yearly mammograms recommended. ASSESSMENT CATEGORY: BIRADS Category 1: Negative. A letter regarding these results will be sent to the patient by the facility within 30 days. FOLLOW UP RECOMMENDATION: Yearly follow up mammogram recommended. (A) Approximately 10% of breast cancers are not detected by mammography. A normal mammogram should not delay biopsy of a clinically suspicious abnormality. Electronically Signed: Martin Velázquez MD at 10:42 EDT ,
== END | disposition home or self-care (01) ==
LOC: OPBI 13:14
PROVIDERS: PCP Family Medicine; Visit Provider Family Medicine
DX: Z12.31 Encounter for screening mammogram for malignant neoplasm of breast (principal)
CPT/HCPCS: 77063; 77067

== ENCOUNTER → 2022-11-20 | Outpatient (CLI) | payer BC, SELFPAY ==
[2022-11-20 17:49] LABS: Absolute Lymphocyte Count 2.44 X10^3/uL (0.83-4.51); Absolute Neutrophil Count 3.2 X10^3/uL (2.0-7.7); Basophil# 0.09 X10^3/uL; Basophil% 1.4 % (0-1); Eosinophil# 0.21 X10^3/uL; Eosinophils% 3.2 % (0-5); Hemoglobin 13.6 g/dL (12.0-15.0); Lymphocyte # 2.44 X10^3/ul (0.83-4.51); Lymphocyte % 36.7 % (19-41); Mean Corp Hgb Conc 32.4 g/dL (32-36); Mean Corpuscular Hgb 28.1 pg (27.0-32.0); Mean Corpuscular Volume 86.8 fL (81-99); Mean Platelet Vol. 10.9 fl (6.2-12.0); Monocyte% 10.5 % (0-10); NRBC Flagged by Analyzer 0 % (0-5); Neutrophil # 3.19 X10^3/uL (2.7-7.7); Neutrophil % 47.9 % (47-70); Platelet Count 238 K/mm3 (150-450); RBC Distribution Width CV 12.9 % (11.6-14.6); RBC Distribution Width SD 40.5 fl (35.1-43.9); Red Blood Count 4.84 M/mm3 (4.2-5.4); White Blood Count 6.7 K/mm3 (4.4-11.0)
[2022-11-20 18:07] LABS: Anion Gap 6 (5-15); BUN 14 mg/dL (7-18); BUN/Creat Ratio 16.3 RATIO (10-20); Calcium,Total 9.2 mg/dL (8.5-10.1); Chloride 107 mmol/L (98-107); Creatinine, Serum 0.86 mg/dL (0.55-1.02); EST Glomerular Filtration Rate 73 mL/min (>60); Est Glom Filt Rate - Afr Amer 88 mL/min (>60); Glucose 100 mg/dL (74-106); Potassium 4.7 mmol/L (3.5-5.1); Sodium Level 142 mmol/L (136-145)
== END | disposition home or self-care (01) ==
LOC: BFHLAB 15:19
PROVIDERS: PCP Family Medicine; Referring Provider Family Medicine; Visit Provider Family Medicine
DX: Z00.00 Encounter for general adult medical examination without abnormal findings (principal); I10 Essential (primary) hypertension
CPT/HCPCS: 36415; 80048; 85025

== ENCOUNTER → 2022-12-11 | Outpatient (CLI) | payer BC, SELFPAY ==
--- NOTE | 2022-12-11 07:25 | BI_ITS ---
MAMMOGRAPHY - BILATERAL SCREENING REASON FOR EXAM: Female, 52 years old. Routine annual screening examination. PERTINENT HISTORY: Non-contributory. TECHNIQUE: Digital bilateral breast kaci (3D mammographic acquisition) in the CC and MLO projections. 2-D mediolateral oblique (MLO) and craniocaudad (CC) views of both breasts were obtained. CAD: Full Field Digital Mammography with Computer Added Detection was performed. COMPARISON: Comparison is made with prior study December 02, 2021 and November 22, 2020. FINDINGS: Breast Composition: The breasts are almost entirely fatty. There are no dominant masses or suspicious calcifications. No other significant abnormalities are identified. There has been no significant change since the prior study. BI/SCRN MAMM (CAD)W/KACI BILAT IMPRESSION: Stable bilateral screening mammogram. Yearly follow-up mammogram recommended. (A) ASSESSMENT CATEGORY: BIRADS Category 1: Negative. A letter regarding these results will be sent to the patient by the facility within 30 days. Approximately 10% of breast cancers are not detected by mammography. A normal mammogram should not delay biopsy of a clinically suspicious abnormality. [id number] Electronically Signed: Leo Johnson MD at 8:24 EDT ,
== END | disposition home or self-care (01) ==
LOC: OPBI 07:24
PROVIDERS: PCP Family Medicine; Referring Provider Family Medicine; Visit Provider Family Medicine
DX: Z12.31 Encounter for screening mammogram for malignant neoplasm of breast (principal)
CPT/HCPCS: 77063; 77067

== ENCOUNTER → 2023-11-26 | Outpatient (CLI) | payer OTHER, SELFPAY ==
[2023-11-26 12:19] LABS: Absolute Lymphocyte Count 1.88 X10^3/uL (0.83-4.51); Absolute Neutrophil Count 3.6 X10^3/uL (2.0-7.7); Basophil% 1.6 % (0-1); Eosinophil# 0.16 X10^3/uL; Eosinophils% 2.5 % (0-5); Hematocrit 43.6 % (37-47); Lymphocyte # 1.88 X10^3/ul (0.83-4.51); Lymphocyte % 29.7 % (19-41); Mean Corp Hgb Conc 32.1 g/dL (32-36); Mean Corpuscular Hgb 27.2 pg (27.0-32.0); Mean Corpuscular Volume 84.7 fL (81-99); Mean Platelet Vol. 10.5 fl (6.2-12.0); Monocyte# 0.56 X10^3/uL; Monocyte% 8.8 % (0-10); NRBC Flagged by Analyzer 0 % (0-5); Neutrophil # 3.61 X10^3/uL (2.7-7.7); Neutrophil % 57.1 % (47-70); Platelet Count 256 K/mm3 (150-450); RBC Distribution Width CV 12.8 % (11.6-14.6); Red Blood Count 5.15 M/mm3 (4.2-5.4); White Blood Count 6.3 K/mm3 (4.4-11.0)
[2023-11-26 12:54] LABS: Anion Gap 5 (5-15); BUN 18 mg/dL (7-18); BUN/Creat Ratio 19.9 RATIO (10-20); Calcium,Total 9.1 mg/dL (8.5-10.1); Chloride 107 mmol/L (98-107); Cholesterol 225 mg/dL (200); EST Glomerular Filtration Rate 69 mL/min (>60); Est Glom Filt Rate - Afr Amer 83 mL/min (>60); Glucose 103 mg/dL (74-106); High Density Lipoprotein 59 mg/dL; Potassium 3.9 mmol/L (3.5-5.1); Sodium Level 140 mmol/L (136-145); Thyroid Stim Hormone (TSH) 1.56 uIU/mL (0.358-3.74); Triglycerides 89 mg/dL; Very Low Density Lipoprotein 18 mg/dL (5-40)
[2023-12-01 14:10] LABS: Age Gdln ACOG Testing 30-65 (.); HPV APTIMA, High Risk Negative (Negative)
[2023-12-01 18:03] LABS: HPV Reflexed? YES, CHARGE PATIENT
== END | disposition home or self-care (01) ==
PROVIDERS: PCP Family Medicine; Referring Provider Family Medicine; Visit Provider Family Medicine
DX: Z01.419 Encounter for gynecological examination (general) (routine) without abnormal findings (principal); I10 Essential (primary) hypertension; L65.9 Nonscarring hair loss, unspecified
CPT/HCPCS: 36415; 80048; 80061; 84443; 85025; 87624; 88175; G0145

== ENCOUNTER → 2023-12-13 | Outpatient (CLI) | payer OTHER, SELFPAY ==
--- NOTE | 2023-12-13 12:32 | BI_ITS ---
MAMMOGRAPHY - BILATERAL SCREENING REASON FOR EXAM: Female, 53 years old. Routine annual screening examination. PERTINENT HISTORY: Non-contributory. TECHNIQUE: Digital bilateral breast kaci (3D mammographic acquisition) in the CC and MLO projections. 2-D mediolateral oblique (MLO) and craniocaudad (CC) views of both breasts were obtained. CAD: Full Field Digital Mammography with Computer Added Detection was performed. COMPARISON: Comparison is made with prior study dated December 11, 2022 and December 02, 2021. FINDINGS: Breast Composition: The breasts are almost entirely fatty. There are no dominant masses or suspicious calcifications. No other significant abnormalities are identified. There has been no significant change since the prior study. BI/SCRN MAMM (CAD)W/KACI BILAT IMPRESSION: Stable bilateral screening mammogram. Yearly follow-up mammogram recommended. (A) ASSESSMENT CATEGORY: BIRADS Category 1: Negative. A letter regarding these results will be sent to the patient by the facility within 30 days. Approximately 10% of breast cancers are not detected by mammography. A normal mammogram should not delay biopsy of a clinically suspicious abnormality. [id number] Electronically Signed: Leo Johnson MD at 13:53 EDT ,
== END | disposition home or self-care (01) ==
LOC: OPBI 12:31
PROVIDERS: PCP Family Medicine; Referring Provider Family Medicine; Visit Provider Family Medicine
DX: Z12.31 Encounter for screening mammogram for malignant neoplasm of breast (principal)
CPT/HCPCS: 77063; 77067

== ENCOUNTER → 2024-11-28 | Outpatient (CLI) | payer OTHER, SELFPAY ==
[2024-11-28 15:57] LABS: Hematocrit 43.3 % (37-47); Hemoglobin 13.9 g/dL (12.0-15.0); Immature Granulocytes Count 0.010 X10^3/uL (0.0-0.0); Mean Corp Hgb Conc 32.1 g/dL (32-36); Mean Corpuscular Volume 85.1 fL (81-99); Mean Platelet Vol. 10.5 fl (6.2-12.0); NRBC Flagged by Analyzer 0 % (0-5); Platelet Count 258 K/mm3 (150-450); RBC Distribution Width CV 13.2 % (11.6-14.6); RBC Distribution Width SD 41.1 fl (35.1-43.9); Red Blood Count 5.09 M/mm3 (4.2-5.4); White Blood Count 6.1 K/mm3 (4.4-11.0)
[2024-11-28 16:04] LABS: Anion Gap 11 (5-15); BUN 14 mg/dL (4-19); BUN/Creat Ratio 16.7 RATIO (10-20); Calcium,Total 9.5 mg/dL (7.6-11.0); Carbon Dioxide 24.3 mmol/L (21.0-32.0); Chloride 103 mmol/L (98-108); Cholesterol 212 mg/dL (<=200); Glucose 91 mg/dL (70-99); Low Density Lipoprotein Calc. 133 mg/dL; Potassium 4.8 mmol/L (3.3-5.1); Triglycerides 104 mg/dL; Very Low Density Lipoprotein 21 mg/dL (5-40); cholesterol:hdl ratio screen 3.64
== END | disposition home or self-care (01) ==
LOC: BFHLAB 11:44
PROVIDERS: PCP Family Medicine; Visit Provider Family Medicine
DX: Z00.00 Encounter for general adult medical examination without abnormal findings (principal); I10 Essential (primary) hypertension; L65.9 Nonscarring hair loss, unspecified
CPT/HCPCS: 36415; 80048; 80061; 85025

== ENCOUNTER → 2024-12-14 | Outpatient (CLI) | payer OTHER, SELFPAY ==
--- NOTE | 2024-12-14 07:45 | BI_ITS ---
EXAM: SCRN MAMM (CAD)W/KACI BILAT DATE: 12/14/2024 CLINICAL HISTORY: F, Age 54 y/o , SCREENING No family history. TECHNIQUE: SCRN MAMM (CAD)W/KACI BILAT COMPARISON: Prior exam(s) dated prior study dated December 13, 2023.. FINDINGS: TISSUE DENSITY: The breasts are almost entirely fatty. Bilateral Breast Mammographic Findings: No significant masses, calcifications or other abnormalities are identified. No suspicious masses, areas of developing architectural distortion, or suspicious calcifications. There has been no significant interval change. BI/SCRN MAMM (CAD)W/KACI BILAT IMPRESSION: Stable examination. OVERALL FINAL ASSESSMENT BI-RADS 1: NEGATIVE. RECOMMENDATION: Routine annual follow-up in 1 Year A letter with findings and recommendations will be mailed to the patient. Reading Location: [place] [id number]
--- OUTSIDE RECORDS SUMMARY | 2024-12-14 08:04 | XMS RPT_ITS | CCD ---
Author Organization [facility] Care Team Providers Care Yacht Rigger Name Role Phone Rylee THOMASON, Dr. Conroy Primary Care Provider [phone] Dr. Marycarmen Mckee MD Attending Provider Marycarmen Mckee Attending Unavailable Marycarmen Mkcee Primary Care Unavailable Marycarmen Mckee Referring Unavailable Marycarmen Mckee Attending Unavailable Marycarmen Mckee Primary Care Unavailable Allergies Allergy Classification Reported Allergen(s) Allergy Type Date of Onset Reaction(s) Facility (1 source) Penicillins Allergy to substance 1 PT UNSURE OF REACTION [facility] (1 source) Penicillins Drug allergy (disorder) 1 [facility] Repository Medications Current Medications Medication Drug Class(es) Dates Sig (Normalized) Sig (Original) atenolol 25 mg oral tablet (1 source) beta-Adrenergic Jefry Start: 11-07-2018 take 1 tablet by mouth once daily Atenolol 25 MG tablet Active 25 mg PO DAILY November 07, 2018 12:00am dexamethasone 6 mg oral tablet (2 sources) Corticosteroid Start: 03-15-2021 take 1 tablet by mouth once daily Dexamethasone (Decadron) 6 mg tablet Active 6 mg PO DAILY March 15, 2021 1:00am COVID-19 COVID-19 esomeprazole 40 mg delayed release oral capsule (1 source) Proton Pump Inhibitor Start: 11-07-2018 take 1 capsule by mouth once daily Esomeprazole Magnesium 40 MG capsule Active 40 mg PO DAILY November 07, 2018 12:00am Problems Active Problems Problem Classification Problem Date Documented Da te Episodic/Chronic Other lower respiratory disease (1 source) Hypoxia; Translations: [Hypoxemia] 03-23-2021 Episodic Viral infection (2 sources) Disease caused by 2019-nCoV; Translations: [COVID-19] 03-15-2021 Episodic Past or Other Problems Problem Classification Problem Date Documented Da te Episodic/Chronic Other screening for suspected conditions (not mental disorders or infectious disease) (1 source) Encounter for screening mammogram for malignant neoplasm of breast; Translations: [Encounter for screening mammogram for malignant neoplasm of breast] Onset: 01-07-2024 Episodic Results Test Name Value Interpretation Reference Range Facility Absolute lymphocyte countOrd ered By: Marycarmen Mckee on 11-28-2024 Lymphocytes Auto (Unsp spec) [#/Vol] 2.03 10*3/uL 0.83-4.51 [facility] Absolute neutrophil countOrd ered By: Marycarmen Mckee on 11-28-2024 Neutrophils (Bld) [#/Vol] 3.3 10*3/uL 2.0-7.7 [facility] Anion gap in Serum or Plasma Ordered By: Marycarmen Mckee on 11-28-2024 Anion gap [Moles/Vol] 11 mmol/L 5-15 [facility] Automated lymphocyte count a s percentage of total leukocytesOrdered By: Marycarmen Mckee on 11-28-2024 Lymphocytes/100 WBC Auto (Unsp spec) 33.3 % - [facility] BUN/creatinine ratioOrdered By: Marycarmen Mckee on 11-28-2024 Urea nitrogen/Creatinine [Mass ratio] 16.7 mg/mg - [facility] Basic Metabolic Profile (BMP )on 11-28-2024 BUN/CRE 16.7 RATIO Normal - [facility] Comment on above: Performed By: #### L 100.0100, L500.4100, L500.2500 #### [facility] [address] [place], [address] Calcium [Mass/Vol] 9.5 mg/dL Normal 7.6-11.0 [facility] Comment on above: Performed By: #### L 100.0100, L500.4100, L500.2500 #### [facility] [address] [place], [address] Chloride [Moles/Vol] 103 mmol/L Normal 98-108 [facility] Comment on above: Performed By: #### L 100.0100, L500.4100, L500.2500 #### [facility] [address] [place], [address] CO2 [Moles/Vol] 24.3 mmol/L Normal 21.0-32.0 [facility] Comment on above: Performed By: #### L 100.0100, L500.4100, L500.2500 #### [facility] [address] [place], [address] Creatinine [Mass/Vol] 0.85 mg/dL Normal 0.70-1.20 [facility] Comment on above: Performed By: #### L 100.0100, L500.4100, L500.2500 #### [facility] [address] [place], [address] GAP 11 Normal 5-15 [facility] Comment on above: Performed By: #### L 100.0100, L500.4100, L500.2500 #### [facility] [address] [place], [address] GFR/1.73 sq M.predicted among non-blacks MDRD (S/P/Bld) [Vol rate/Area] 80 mL/min/{1.73_m2} Normal >60 [facility] Comment on above: Result Comment: mL/m in/1.73m2 CKD-EPI Creatinine Equation (2020) Performed By: #### L 100.0100, L500.4100, L500.2500 #### [facility] [address] [place], [address] Glucose [Mass/Vol] 91 mg/dL Normal 70-99 [facility] Comment on above: Performed By: #### L 100.0100, L500.4100, L500.2500 #### [facility] [address] [place], [address] Potassium [Moles/Vol] 4.8 mmol/L Normal 3.3-5.1 [facility] Comment on above: Performed By: #### L 100.0100, L500.4100, L500.2500 #### [facility] [address] [place], [address] Sodium [Moles/Vol] 138 mmol/L Normal 133-145 [facility] Comment on above: Performed By: #### L 100.0100, L500.4100, L500.2500 #### [facility] [address] [place], [address] Urea nitrogen [Mass/Vol] 14 mg/dL Normal 4-19 [facility] Comment on above: Performed By: #### L 100.0100, L500.4100, L500.2500 #### [facility] [address] [place], [address] Basophil percentageOrdered B y: Marycarmenjacquie Mckee on 11-28-2024 Basophils/100 WBC (Bld) 1.0 % 0-1 [facility] CBC W/Diff, Automatedon 11-01 Absolute Lymph 2.03 X10 3/uL Normal 0.83-4.51 [facility] Comment on above: Performed By: #### L 100.0100, L500.4100, L500.2500 #### [facility] [address] [place], [address] Absolute Neut 3.3 X10 3/uL Normal 2.0-7.7 [facility] Comment on above: Performed By: #### L 100.0100, L500.4100, L500.2500 #### [facility] [address] [place], [address] Basophils/100 WBC (Bld) 1.0 % Normal 0-1 [facility] Comment on above: Performed By: #### L 100.0100, L500.4100, L500.2500 #### [facility] [address] [place], [address] Eosinophils/100 WBC (Bld) 2.0 % Normal 0-5 [facility] Comment on above: Performed By: #### L 100.0100, L500.4100, L500.2500 #### [facility] [address] [place], [address] Erythrocyte distribution width (RBC) [Ratio] 13.2 % Normal 11.6-14.6 [facility] Comment on above: Performed By: #### L 100.0100, L500.4100, L500.2500 #### [facility] [address] [place], [address] Hematocrit (Bld) [Volume fraction] 43.3 % Normal 37-47 [facility] Comment on above: Performed By: #### L 100.0100, L500.4100, L500.2500 #### [facility] [address] [place], [address] Hemoglobin (Bld) [Mass/Vol] 13.9 g/dL Normal 12.0-15.0 [facility] Comment on above: Performed By: #### L 100.0100, L500.4100, L500.2500 #### [facility] [address] [place], [address] IG% 0.200 Normal 0.0-0.9 [facility] Comment on above: Result Comment: IG% - Immature Granulocytes (promyelocytes, myelocytes and metamyelocytes) > 1% indicates that a LEFT SHIFT is Present. Performed By: #### L 100.0100, L500.4100, L500.2500 #### [facility] [address] [place], [address] Lymphocytes/100 WBC (Bld) 33.3 % Normal 19-41 [facility] Comment on above: Performed By: #### L 100.0100, L500.4100, L500.2500 #### [facility] [address] [place], [address] MCH (RBC) [Entitic mass] 27.3 pg Normal 27.0-32.0 [facility] Comment on above: Performed By: #### L 100.0100, L500.4100, L500.2500 #### [facility] [address] [place], [address] MCHC (RBC) [Mass/Vol] 32.1 g/dL Normal 32-36 [facility] Comment on above: Performed By: #### L 100.0100, L500.4100, L500.2500 #### [facility] [address] [place], [address] MCV (RBC) [Entitic vol] 85.1 fL Normal 81-99 [facility] Comment on above: Performed By: #### L 100.0100, L500.4100, L500.2500 #### [facility] [address] [place], [address] Monocytes/100 WBC (Bld) 8.9 % Normal 0-10 [facility] Comment on above: Performed By: #### L 100.0100, L500.4100, L500.2500 #### [facility] [address] [place], [address] Neutrophils/100 WBC (Bld) 54.6 % Normal 47-70 [facility] Comment on above: Performed By: #### L 100.0100, L500.4100, L500.2500 #### [facility] [address] [place], [address] Nucleated RBC (Bld) [#/Vol] 0 10*3/uL Normal 0-5 [facility] Comment on above: Performed By: #### L 100.0100, L500.4100, L500.2500 #### [facility] [address] [place], [address] Platelet mean volume (Bld) [Entitic vol] 10.5 fL Normal 6.2-12.0 [facility] Comment on above: Performed By: #### L 100.0100, L500.4100, L500.2500 #### [facility] [address] [place], [address] Platelets (Bld) [#/Vol] 258 10*3/uL Normal 150-450 [facility] Comment on above: Performed By: #### L 100.0100, L500.4100, L500.2500 #### [facility] [address] [place], [address] RBC (Bld) [#/Vol] 5.09 10*6/uL Normal 4.2-5.4 [facility] Comment on above: Performed By: #### L 100.0100, L500.4100, L500.2500 #### [facility] [address] [place], [address] RDW SD 41.1 fl Normal 35.1-43.9 [facility] Comment on above: Performed By: #### L 100.0100, L500.4100, L500.2500 #### [facility] [address] [place], [address] WBC (Bld) [#/Vol] 6.1 10*3/uL Normal 4.4-11.0 [facility] Comment on above: Performed By: #### L 100.0100, L500.4100, L500.2500 #### [facility] [address] [place], [address] Calculated very low density lipoprotein (VLDL) cholesterol measurementOrdered By: Marycarmen Mckee on 11-28-2024 Calculated very low density lipoprotein (VLDL) cholesterol measurement 21 mg/dL 5-40 [facility] Carbon dioxide, total [Moles /volume] in Central venous bloodOrdered By: Marycarmen Mckee on 11-28-2024 CO2 [Moles/Vol] 24.3 mmol/L 21.0-32.0 [facility] Chloride assayOrdered By: Jakob Mckee on 11-28-2024 Chloride [Moles/Vol] 103 mmol/L 98-108 [facility] Eosinophil percentageOrdered By: Marycarmen Mckee on 11-28-2024 Eosinophils/100 WBC (Bld) 2.0 % 0-5 [facility] Erythrocyte distribution wid th ratioOrdered By: Marycarmen Mckee on 11-28-2024 Erythrocyte distribution width (RBC) [Ratio] 13.2 % 11.6-14.6 [facility] Erythrocyte distribution wid th standard deviationOrdered By: Marycarmen Mckee on 11-28-2024 Erythrocyte distribution width (RBC) [Ratio] 41.1 fl 35.1-43.9 [facility] Glomerular filtration rate ( GFR) estimation/1.73 sq m using serum, plasma, or whole bOrdered By: Marycarmen Mckee on 11-28-2024 GFR/1.73 sq M.predicted among non-blacks MDRD (S/P/Bld) [Vol rate/Area] 80 mL/min/{1.73_m2} >60 [facility] Comment on above: mL/min/1.73m2 CKD-EP I Creatinine Equation (2020) Hematocrit Auto (Bld) [Volum e fraction]Ordered By: Marycarmen Mckee on 11-28-2024 Hematocrit (Bld) [Volume fraction] 43.3 % 37-47 [facility] Hemoglobin measurementOrdere d By: Marycarmen Mckee on 11-28-2024 Hemoglobin (Bld) [Mass/Vol] 13.9 g/dL 12.0-15.0 [facility] Immature granulocytes/100 WB C Auto (Bld)Ordered By: Marycarmen Mckee on 11-28-2024 Immature granulocytes/100 WBC (Bld) 0.200 % 0.0-0.9 [facility] Comment on above: IG% - Immature Granu locytes (promyelocytes, myelocytes and metamyelocytes) > 1% indicates that a LEFT SHIFT is Present. LDL calc ser/plasOrdered By: Marycarmen Mckee on 11-28-2024 Cholesterol in LDL [Mass/Vol] 133 mg/dL [facility] Comment on above: Slsybppofl=522-646 m g/dL & Higher Wxds=424 mg/dL or greaterFriedwald Equation for LDL-C Lipid Profileon 11-28-2024 CHOL:HDL 3.64 Normal [facility] Comment on above: Performed By: #### L 100.0100, L500.4100, L500.2500 #### [facility] [address] [place], [address] Cholesterol [Mass/Vol] 212 mg/dL High <=200 [facility] Comment on above: Result Comment: Chol esterol level, Desirable <200 mg/dL Borderline high cholesterol 200-239 mg/dL High cholesterol >=240 mg/dL Recommendations of the NCEP Adult Treatment Panel for the following risk-cutoff thresholds for the [place] population. Performed By: #### L 100.0100, L500.4100, L500.2500 #### [facility] [address] [place], [address] Cholesterol in HDL [Mass/Vol] 58 mg/dL Normal [facility] Comment on above: Result Comment: Alie onal Cholesterol Education Program (NCEP) guidelines: <40 mg/dL: Low HDL-cholesterol (major risk factor for CHD) >= 60 mg/dL: High HDL-cholesterol (negative risk factor for CHD) HDL-cholesterol is affected by a number of factors, e.g. smoking, exercise, hormones, sex and age. Performed By: #### L 100.0100, L500.4100, L500.2500 #### [facility] [address] [place], [address] Cholesterol in LDL [Mass/Vol] 133 mg/dL Normal [facility] Comment on above: Result Comment: Bord tszjxk=285-012 mg/dL Higher Gnkp=772 mg/dL or greater Friedwald Equation for LDL-C Performed By: #### L 100.0100, L500.4100, L500.2500 #### [facility] [address] [place], [address] Cholesterol in VLDL [Mass/Vol] 21 mg/dL Normal 5-40 [facility] Comment on above: Performed By: #### L 100.0100, L500.4100, L500.2500 #### [facility] [address] [place], [address] Triglyceride [Mass/Vol] 104 mg/dL Normal [facility] Comment on above: Result Comment: The drugs N-Acetylcysteine and Metamizole may falsely depress this assay. Normal range: <150 mg/dL Borderline High: 150-199 mg/dL High: 200-499 mg/dL Very High: >500 mg/dL Performed By: #### L 100.0100, L500.4100, L500.2500 #### [facility] [address] [place], [address] MCV (mean corpuscular volume ) determinationOrdered By: Marycarmen Mckee on 11-28-2024 MCV (RBC) [Entitic vol] 85.1 fL 81-99 [facility] Mean corpuscular hemoglobin (MCH) determinationOrdered By: Marycarmen Mckee on 11-28-2024 MCH (RBC) [Entitic mass] 27.3 pg 27.0-32.0 [facility] Mean corpuscular hemoglobin concentration (MCHC) determinationOrdered By: Marycarmen Mckee on 11-28-2024 MCHC (RBC) [Mass/Vol] 32.1 g/dL 32-36 [facility] Mean platelet volume determi nationOrdered By: Marycarmen Mckee on 11-28-2024 Platelet mean volume (Bld) [Entitic vol] 10.5 fL 6.2-12.0 [facility] Monocyte percentageOrdered B y: Marycarmen Mckee on 11-28-2024 Monocytes/100 WBC (Bld) 8.9 % 0-10 [facility] Neutrophil percentageOrdered By: Marycarmen Mckee on 11-28-2024 Neutrophils/100 WBC (Bld) 54.6 % 47-70 [facility] Nucleated red blood cell per centageOrdered By: Marycarmen Mckee on 11-28-2024 Nucleated RBC/100 WBC (Bld) [Ratio] 0 % 0-5 [facility] Platelet countOrdered By: Jakob weldoncheryl Rylee on 11-28-2024 Platelets (Bld) [#/Vol] 258 10*3/uL 150-450 [facility] Potassium measurement (mass/ volume)Ordered By: Marycarmen Mckee on 11-28-2024 Potassium (Unsp spec) [Mass/Vol] 4.8 mmol/L 3.3-5.1 [facility] RBC Auto (Bld) [#/Vol]Ordere d By: Marycarmen Mckee on 11-28-2024 RBC (Bld) [#/Vol] 5.09 10*6/uL 4.2-5.4 [facility] Screening total cholesterol/ high density lipoprotein (HDL) cholesterol ratioOrdered By: Marycarmen Mckee on 11-28-2024 Cholesterol.total/Shi sterol in HDL [Mass ratio] 3.64 {ratio} [facility] Serum creatinine measurement (mass/volume)Ordered By: Marycarmen Mckee on 11-28-2024 Creatinine [Mass/Vol] 0.85 mg/dL 0.70-1.20 [facility] Serum glucose measurement (m ass/volume)Ordered By: Marycarmen Mckee on 11-28-2024 Glucose [Mass/Vol] 91 mg/dL 70-99 [facility] Serum or plasma calcium giovana urement (mass/volume)Ordered By: Marycarmen Mckee on 11-28-2024 Calcium [Mass/Vol] 9.5 mg/dL 7.6-11.0 [facility] Serum or plasma cholesterol in HDL measurement (mass/volume)Ordered By: Marycarmen Mckee on 11-28-2024 Cholesterol in HDL [Mass/Vol] 58 mg/dL >40 [facility] Comment on above: National Cholesterol Education Program (NCEP) guidelines:<40 mg/dL: Low HDL-cholesterol (major risk factor for CHD)>= 60 mg/dL: High HDL-cholesterol (negative risk factor for CHD)HDL-cholesterol is affected by a number of factors, e.g. smoking, exercise, hormones, sex and age. Serum or plasma cholesterol measurement (mass/volume)Ordered By: Marycarmen Mckee on 11-28-2024 Cholesterol [Mass/Vol] 212 mg/dL High <201 [facility] Comment on above: Cholesterol level, D esirable <200 mg/dLBorderline high cholesterol 200-239 mg/dLHigh cholesterol >=240 mg/dLRecommendations of the NCEP Adult Treatment Panel for the following risk-cutoff thresholds for the [place] population. Serum or plasma urea nitroge n measurement (mass/volume)Ordered By: Marycarmen Mckee on 11-28-2024 Urea nitrogen [Mass/Vol] 14 mg/dL 4- [facility] Sodium levelOrdered By: Danielle Mckee on 11-28-2024 Sodium [Moles/Vol] 138 mmol/L 133-145 [facility] Triglycerides measurementOrd ered By: Marycarmen Mckee on 11-28-2024 Triglyceride [Mass/Vol] 104 mg/dL <199 [facility] Comment on above: The drugs N-Acetylcy steine and Metamizole may falsely depress this assay. Normal range: <150 mg/dLBorderline High: 150-199 mg/dLHigh: 200-499 mg/dLVery High: >500 mg/dL White blood cell (WBC) count Ordered By: Marycarmen Mckee on 11-28-2024 WBC (Bld) [#/Vol] 6.1 10*3/uL 4.4-11.0 [facility] SCRN MAMM (CAD)W/KACI BILATo n 12-13-2023 SCRN MAMM (CAD)W/[facility] Imaging Services [address] [place] [address] SCRN MAMM (CAD)W/KACI BIL MR#: [id number] Acct: [id number] Name: ROCKY VALENTINO Rep #: [id number] : 1970 F 53 From: Leo obrien MD PCP: Dr. Marycarmen Mckee MD Status: [facility] Study: SCRN MAMM (CAD)W/KACI BILAT Date of Exam: 12/01 06/26 Exam# [id number] Ordering Dr: Marycarmen Mckee MD [id number] MAMMOGRAPHY - BILATERAL SCREENING REASON FOR EXAM: Female, 53 years old. Routine annual screening examination. PERTINENT HISTORY: Non-contributory. TECHNIQUE: Digital bilateral breast kaci (3D mammographic acquisition) in the CC and MLO projections. 2-D mediolateral oblique (MLO) and craniocaudad (CC) views of both breasts were obtained. CAD: Full Field Digital Mammography with Computer Added Detection was performed. COMPARISON: Comparison is made with prior study dated December 11, 2022 and December 02, 2021. FINDINGS: Breast Composition: The breasts are almost entirely fatty. There are no dominant masses or suspicious calcifications. No other significant abnormalities are identified. There has been no significant change since the prior study. BI/SCRN MAMM (CAD)W/KACI BILAT IMPRESSION: Stable bilateral screening mammogram. Yearly follow-up mammogram recommended. (A) ASSESSMENT CATEGORY: BIRADS Category 1: Negative. A letter regarding these results will be sent to the patient by the facility within 30 days. Approximately 10% of breast cancers are not detected by mammography. A normal mammogram should not delay biopsy of a clinically suspicious abnormality. [id number] Electronically Signed: Leo Johnson MD at 13:53 EDT , CC: Dr. Marycarmen Mckee MD Edi Manager: Signed Normal [facility] OBSOLETEon 11-23-2016 OBSOLETE Refill (FAMPWS) BEKAH ADAMS ([id number]) 1970 FDate Time Provider Department11/23/16 [facility] FAMPWS During your visit today, we recorded the following information about you:Sakina Garrison 11/23/2016 2:15 PM SignedPatient has been identified by name and date of : YesRX INSTRUCTIONS:Patient aware RX will be sent to pharmacy. No need to notify patient.Sakina Ruiz PharmD 11/24/2016 11:30 AM SignedPharmacist Refill Authorization ReviewName: Bekah ValentinoMRN: [id number]: 11/24/2016Time: 11:30 AMRefill authorization request(s) received via patient request and reviewed undereffective consult agreement. Upon review, did confirm that an activepatient-provider relationship exists and that the prescriber is a participatingphysician under the consult agreement.The medication(s) fall under the following categories:Category 1: 1 corresponding medication(s) qualifies for renewal due to up todate labs and provider visits.Additional actions taken: Prescription(s) issued.Yoni MataDPharian Managed Authorization CenterPhone Current Outpatient Prescriptions:atenolol (TENORMIN) 25 mg tablet Take 1 tablet by mouth once daily.esomeprazole (NEXIUM) 40 mg ORAL capsule Take 1 capsule by mouth once daily.multivitamin (DAILY MULTI-VITAMIN) ORAL tablet Take 1 tablet by mouth oncedaily.magnesium oxide (MAGOX) 400 mg ORAL tablet Take by mouth. Takes 2 once a dayat nightNo current facility-administered medications for this visit.Allergies As of Date: 11/23/2016 Noted Allergy ReactionPENICILLIN 10/21/2015 4 - HivesDate Reviewed: 10/19/2016Reviewed by: Bryson Medina Ma - Fully AssessedReason for Visit: Refill Request [94]Order(s):atenolol (TENORMIN) 25 mg tabletTake 1 tablet by mouth once daily.Disp: 90 tabletRfl: 1Prescriptions as of 11/23/2016 Sig: ATENOLOL 25 MG TABLET Take 1 tablet by mouth once d* * ESOMEPRAZOLE MAGNESIUM 40 MG * Take 1 capsule by mouth once * * MULTIVITAMIN TABLET Take 1 tablet by mouth once d* * MAGNESIUM OXIDE 400 MG TABLET Take by mouth. Takes 2 once *Problem List As Of Date 11/23/2016 Noted Resolved BENIGN HYPERTENSION [I10] ESOPHAGEAL REFLUX [K21.9] INVALID FOR* IRON DEFIC ANEMIA NOS [D50.9] INVALID FOR* CONSTIPATION NOS [K59.00] INVALID FOR* ADJUSTMENT DISORDER WITH DEPRESSED MOOD [F43.21]INVALID FOR* ANXIETY STATE NOS [F41.1] INVALID FOR* Acute gastritis without mention of hemorrhage [*INVALID FOR* Esophagitis, unspecified [K20.9] INVALID FOR*Prescriptions ordered this encounter Disp Refills Start End ATENOLOL 25 MG TABLET 90 t* 1 11/24/2016 Route: ORAL Sig: Take 1 tablet by mouth once daily.Medications Discontinued During This Encounter atenolol (TENORMIN) 25 mg tablet 30 t* 5 06/17/2016 11/24/2016 Route: ORAL Sig: Take 1 tablet by mouth once daily. Disc: Reason for discontinue is not on file. Status:Closed by DOM (PHARMACIST)BRANDEE on 11/24/16 Normal [facility] Encounters Encounter Date Encounter Type Care Provider Facility Start: 12-06-2024 Encounter for genera l adult medical examination without abnormal findings Marycarmen Mckee [facility] Start: 11-28-2024 End: 11-28-[address] Marycarmen Mckee MD Work Phone: -[facility] Start: 11-28-2024 End: 11-28-[address] Marycarmen Mckee MD -Laboratory [facility] Start: 11-28-2024 End: 11-28-2024 [facility] Start: 12-13-2023 End: 12-13-2023 ambulatory [facility] Facility:[facility] Payers Date Payer Category Payer Unknown [id number] 2023 Self-pay 2023 Unknown [id number] 2010 Unknown [id number] Unknown [id number] Unknown [id number] Social History Date Type Detail Facility Start: 03-15-2021 Tobacco smoking stat us [place] Never smoked tobacco (finding) [facility] Start: 11-07-2018 Tobacco Use Tobacco Use [facility] Start: 1970 Sex Assigned At Female W [facility] Evaluation note Note Date & Type Note Facility Evaluation note No assessment information availa ble [facility] Work Phone: Reason for referral (narrative) Note Date & Type Note Facility Reason for referral (narrative) No reason for referral information available [facility] Work Phone: Summary Purpose Family History No Family History Records FoundNo Family History Records Found Advance Directives No Advanced Directives Records FoundNo Advanced Directives Records Found Additional Source Comments INFORMATION SOURCE (unrecogn ized section and content) DATE CREATED AUTHOR 10/27/2017 [facility] DATE CREATED AUTHOR AUTHOR'S ORGANIZ ATION 12/09/2024 [facility] Care Teams (unrecognized sec tion and content) Team Status: Active Member Role/Relationship Status Dates Dr. Marycarmen Mckee MD Family Provider Active Dr. Marycarmen Mckee MD Primary Care Provider Active Team Status: Inactive Member Role/Relationship Status Dates Dr. Marycarmen Mckee MD Primary Care Provider Active Start: November 28, 2024 End: November 28, 2024 Dr. Marycarmen Mckee MD Attending Provider Active Start: November 28, 2024 End: November 28, 2024 Goals (unrecognized section and content) Goals may be documented in a n alternate section FOR RECORDS PERTAINING TO PATIENTS WHO ARE OR HAVE BEEN ENROLLED IN A CHEMICAL DEPENDENCY/SUBSTANCEABUSE PROGRAM, SOME INFORMATION MAY BE OMITTED. This clinical summary was aggregated from multiple sources. Caution should be exercised in using it in the provision of clinical care. This summary normalizes information from multiple sources, and as a consequence, information in this document may materially change the coding, format and clinical context of patient data. In addition, data may be omitted in some cases. CLINICAL DECISIONS SHOULD BE BASED ON THE PRIMARY CLINICAL RECORDS. [facility] [employer] [facility]. provides no warranty or guarantee of the accuracy or completeness of information in this document.
== END | disposition home or self-care (01) ==
PROVIDERS: PCP Family Medicine; Referring Provider Family Medicine; Visit Provider Family Medicine
DX: Z12.31 Encounter for screening mammogram for malignant neoplasm of breast (principal)
CPT/HCPCS: 77063; 77067